=== PATIENT | female | born 1985 | race Two or more races ===

== ENCOUNTER 2016-04-28 06:09 | Day surgery (SDC) | payer OTHER ==
[2016-04-28 06:35] LABS: APPEARANCE,URINE SLIGHTLY-CLOUDY; BILIRUBIN,URINE NEGATIVE (NEGATIVE); GLUCOSE, URINE NEGATIVE (NEGATIVE); KETONES,URINE NEGATIVE (NEGATIVE); LEUKOCYTE ESTERASE,URINE NEGATIVE (NEGATIVE); NITRITE,URINE NEGATIVE (NEGATIVE); PROTEIN,URINE NEGATIVE (NEGATIVE); UROBILINOGEN,URINE NEGATIVE mg/dL (<2.0)
[2016-04-28 06:36] LABS: ABSOLUTE EOSINOPHILS # (AUTO) 0.1 10^3/uL (0.0-0.6); ABSOLUTE LYMPHOCYTES (AUTO) 2.1 10^3/uL (0.5-4.7); ABSOLUTE MONOCYTES (AUTO) 0.4 10^3/uL (0.1-1.4); BASOPHILS % (AUTO) 0.5 % (0-2); EOSINOPHILS % (AUTO) 1.2 % (0-6); HEMATOCRIT 37.9 % (36.0-47.0); HEMOGLOBIN 12.5 g/dL (12.0-15.5); HGB HCT DIFFERENCE -0.4; MEAN CORPUSCULAR HEMOGLOBIN 26.7 pg (27.0-33.4); MEAN CORPUSCULAR VOLUME 81 fl (80-97); MONOCYTES % (AUTO) 5.4 % (3-13); RED CELL DISTRIBUTION WIDTH 13.7 % (11.5-14.0); SEGMENTED NEUTROPHILS % (AUTO) 65.9 % (42-78); WHITE BLOOD COUNT 7.6 10^3/uL (4.0-10.5)
[2016-04-28] MEDS ORDERED: FAMOTIDINE INJ/PF 20 MG/2 ML SDV IV ONE (07:56)
[2016-04-28] MEDS ORDERED: METOCLOPRAMIDE HCL INJ/PF 10 MG/2 ML SDV ONE ×2 (07:56→11:25)
[2016-04-28] MEDS ORDERED: FENTANYL CITRATE INJ/PF 100 MCG/2 ML AMPUL ONE (08:07)
[2016-04-28] MEDS ORDERED: PROPOFOL INJ 200 MG/20 ML VIAL IV ONE (08:08)
[2016-04-28] MEDS ORDERED: MIDAZOLAM 2 MG/2 ML INJ ONE (08:08)
--- NOTE | 2016-04-28 08:51 | Operative Report ---
Operative Report DATE OF SURGERY: 04/28/16 PREOPERATIVE DIAGNOSIS: Missed AB POSTOPERATIVE DIAGNOSIS: Same OPERATION: Suction D&C SURGEON: RACHID LINDQUIST ANESTHESIA: GA TISSUE REMOVED OR ALTERED: Uterine contents COMPLICATIONS: None ESTIMATED BLOOD LOSS: 10 mL INTRAOPERATIVE FINDINGS: Uterine contents, uterus sounded to 7 cm before and after the procedure PROCEDURE: Patient was taken back to the OR and placed in supine position. Gen. anesthesia was induced. She was placed in the dorsal lithotomy position. Perineum and vagina were prepared and draped in sterile fashion. Bladder was emptied with red rubber catheter. A weighted speculum was placed in the vagina. The anterior lip cervix was grasped with a tenaculum. Uterus was sounded 7 cm. The cervix was dilated. The uterine contents were evacuated using a size 8 suction curet. After completion of the D&C there was a gentle exploration with a sharp curette and no retained products were noted. The uterus sounded 7 cm at the end of the case. All instruments were removed and she was placed back in supine position. She was extubated in the OR and taken to recovery in stable condition.
[2016-04-28] MEDS ORDERED: RINGERS SOLUTION,LACTATED 1,000 ML IV PRN (09:00)
[2016-04-28] MEDS ORDERED: KETOROLAC TROMETHAMINE INJ/PF 30 MG/1 ML SDV IV PRN (09:02)
[2016-04-28] MEDS ORDERED: IBUPROFEN 800 MG TABLET PO PRN (09:03)
[2016-04-28] MEDS ORDERED: OXYCODONE-ACETAMINOPHEN 5-325 MG TABLET PO PRN ×2 (09:05→09:06)
[2016-04-28 11:08] VITALS: BP 90/54
[2016-04-28] MEDS ORDERED: DEXAMETHASONE SOD PHOSPHATE INJ 4 MG/1 ML VIAL ONE (11:25)
[2016-04-28] MEDS ORDERED: ONDANSETRON HCL INJ/PF 4 MG/2 ML SDV ONE (11:25)
[2016-04-28] MEDS ORDERED: SUCCINYLCHOLINE CHLORIDE INJ 200 MG/10 ML VIAL ONE (11:25)
[2016-04-28] MEDS ORDERED: LIDOCAINE 2% INJ-PF (20 MG/ML) 10 ML AMPUL ONE (11:25)
[2016-04-28] MEDS ORDERED: GLYCOPYRROLATE INJ 0.4 MG/2 ML VIAL ONE (11:25)
== END 2016-04-28 11:05 | disposition home or self-care (01) ==
LOC: OROUT 06:09
PROVIDERS: ATTEND Obstetrics & Gynecology
PROC: 10D17ZZ Extraction of Products of Conception, Retained, Via Natural or Artificial Opening (ICD-10-PCS; principal; 2016-04-28 08:15)
DX: O02.1 Missed abortion (principal)
CPT/HCPCS: 36415; 85025; 81025; 81001; 88305 ×2; 59820; J2250; J1100; J3010; J2765; J0330; J2405; J2704; S0028; J3490; 1965

== ENCOUNTER 2017-03-13 10:16 | Emergency (ER) | payer MEDICAID, OTHER ==
--- NOTE | 2017-03-13 11:48 | ER Document Report ---
ED Medical Screen (RME) <FRANCISCA LLOYD - Last Filed: 03/13/17 19:17> - General Mode of Arrival: Ambulatory Information source: Patient TRAVEL OUTSIDE OF THE [place] IN LAST 30 DAYS: No - HPI Patient complains to provider of: Vaginal discharge Onset: This morning Associated Symptoms: Other - see notes above <EDI HOUSTON - Last Filed: 03/13/17 19:50> - General Chief Complaint: Vaginal Discharge Stated Complaint: VAGINAL DISCHARGE Time Seen by Provider: 03/13/17 11:18 Notes: 31 year old female () presents to the ED complaining of vaginal pain and passing brown vaginal discharge and tissue that started this morning. Patient is being followed by [facility] and had an ultrasound performed 2 weeks ago showing a normal intrauterine . Patient is having some mild discomfort currently. Patient denies passing any bright red blood or having any burning with urination. LMP: 12/17/2016 (EDI HOUSTON) - Related Data Allergies/Adverse Reactions: No Known Allergies Allergy (Verified 11/30/13 18:09) Past Medical History - General Information source: Patient - Social History Chew tobacco use (# tins/day): No Frequency of alcohol use: None Drug Abuse: None - Past Medical History Cardiac Medical History: Denies: Hx Coronary Artery Disease, Hx Heart Attack, Hx Hypertension Pulmonary Medical History: Denies: Hx Asthma, Hx Bronchitis, Hx COPD, Hx Pneumonia Neurological Medical History: Denies: Hx Cerebrovascular Accident, Hx Seizures Renal/ Medical History: Denies: Hx Peritoneal Dialysis Musculoskeltal Medical History: Denies Hx Arthritis Past Surgical History: Reports: Hx Appendectomy, Hx Section - Immunizations Hx Diphtheria, Pertussis, Tetanus Vaccination: Yes <EDI HOUSTON - Last Filed: 03/13/17 19:50> Review of Systems - Review of Systems Constitutional: No symptoms reported EENT: No symptoms reported Cardiovascular: No symptoms reported Respiratory: No symptoms reported Gastrointestinal: No symptoms reported Genitourinary: No symptoms reported Female Genitourinary: See HPI, Last menstrual period - 12/17/2016, , Vaginal discharge, Other - vaginal discomfort Musculoskeletal: No symptoms reported Skin: No symptoms reported Hematologic/Lymphatic: No symptoms reported Neurological/Psychological: No symptoms reported -: Yes All other systems reviewed and negative <EDI HOUSTON - Last Filed: 03/13/17 19:50> Physical Exam - General General appearance: Alert In distress: None - HEENT Head: Normocephalic, Atraumatic Eyes: Normal Extraocular movements intact: Yes Pupils: PERRL - Respiratory Respiratory status: No respiratory distress Breath sounds: Normal - Cardiovascular Rhythm: Regular Heart sounds: Normal auscultation - Abdominal Inspection: Normal Tenderness: Nontender <EDI HOUSTON - Last Filed: 03/13/17 19:50> - Vital signs Vitals: Temp Pulse Resp BP Pulse Ox 98.4 F 87 18 105/55 L 98 03/13/17 10:23 03/13/17 10:23 03/13/17 10:23 03/13/17 10:23 03/13/17 10:23 Course - Laboratory Result Diagrams: 03/13/17 12:10 <FRANCISCA LLOYD - Last Filed: 03/13/17 19:17> - Laboratory Result Diagrams: 03/13/17 12:10 <EDI HOUSTON - Last Filed: 03/13/17 19:50> - Re-evaluation Re-evalutation: 03/13/17 19:17 Patient found to have valid intrauterine with closed cervix on ultrasound. Patient denying any abdominal or pelvic pain on reexamination. Labs within normal limits are not significant with no signs of urinary tract infection. Discussed findings with patient and need for follow-up in the next 3 -4 days if symptoms continue. 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 (FRANCISCA LLOYD) - Vital Signs Vital signs: Temp Pulse Resp BP Pulse Ox 98.6 F 92 16 109/59 L 99 03/13/17 19:32 03/13/17 19:32 03/13/17 19:32 03/13/17 19:32 03/13/17 19:32 - Laboratory Laboratory results interpreted by me: 03/13/17 03/13/17 03/13/17 12:05 12:10 12:10 MCH RDW Serum HCG, Qual POSITIVE H Beta HCG, Quant 98810.00 H Urine Ascorbic Acid 20 H 03/13/17 12:10 MCH 26.7 L RDW 14.3 H Serum HCG, Qual Beta HCG, Quant Urine Ascorbic Acid Doctor's Discharge <FRANCISCA LLOYD - Last Filed: 03/13/17 19:17> <EDI HOUSTON - Last Filed: 03/13/17 19:50> - Discharge Clinical Impression: Intrauterine Condition: Good Disposition: HOME, SELF-CARE Additional Instructions: Please follow up with your primary care provider regarding your visit to the ED today. Please return to the ED for any new or worsening symptoms. Forms: Return to Work Referrals: VADIM CHI MD [Primary Care Provider] - Follow up as needed Scribe Documentation - Scribe Written by Scribe:: Loretta Angel, 03/13/2017 1206 acting as scribe for :: Jose Luis <EDI HOUSTON - Last Filed: 03/13/17 19:50>
[2017-03-13 12:46] LABS: ABSOLUTE LYMPHOCYTES (AUTO) 2.4 10^3/uL (0.5-4.7); ABSOLUTE MONOCYTES (AUTO) 0.4 10^3/uL (0.1-1.4); BASOPHILS % (AUTO) 0.4 % (0-2); EOSINOPHILS % (AUTO) 0.4 % (0-6); HEMATOCRIT 40.3 % (36.0-47.0); HEMOGLOBIN 13.2 g/dL (12.0-15.5); LYMPHOCYTES % (AUTO) 30.5 % (13-45); MEAN CORPUSCULAR HEMOGLOBIN 26.7 pg (27.0-33.4); MEAN CORPUSCULAR HGB CONC 32.7 g/dL (32.0-36.0); MEAN CORPUSCULAR VOLUME 82 fl (80-97); MONOCYTES % (AUTO) 5.1 % (3-13); PLATELET COUNT 283 10^3/uL (150-450); RED BLOOD COUNT 4.94 10^6/uL (3.72-5.28); RED CELL DISTRIBUTION WIDTH 14.3 % (11.5-14.0); SEGMENTED NEUTROPHILS % (AUTO) 63.6 % (42-78); TOTAL CELLS COUNTED % (AUTO) 100 %; WHITE BLOOD COUNT 7.8 10^3/uL (4.0-10.5)
--- NOTE | 2017-03-13 14:04 | RADIOLOGY REPORT (SQ) ---
EXAM DESCRIPTION: U/S QT8EFIV TRNABD 1GES W/ODOP COMPLETED DATE/TIME: 03/13/2017 1:50 pm REASON FOR STUDY: passing clots COMPARISON: None. TECHNIQUE: Transvaginal static and realtime grayscale images acquired of the pelvis. Additional machelle cted spectral and color Doppler images recorded. All images stored on PACs. bHCG: Not available. LIMITATIONS: None. FINDINGS: FETUS: Living intrauterine . EGA: 12 weeks 1 day THERON: 09/24/2017 FHR: 173 beats per minute. SUBCHORIONIC BLEED: No. SIZE OF BLEED: Not applicable. UTERUS: No masses. No anomalies. CERVICAL LENGTH: 2.4 cm Closed. RIGHT ADNEXA: Normal ovary with normal vascular flow. No adnexal free fluid. 2.3 cm cyst. LEFT ADNEXA: Not visualized No adnexal free fluid. No adnexal masses. FREE FLUID: None. OTHER: No other significant finding. IMPRESSION: LIVING INTRAUTERINE . EGA 12 weeks 1 day Trimester of : First - 0 to 13 weeks. TECHNICAL DOCUMENTATION: JOB ID: [id number] [employer]- All Rights Reserved
[2017-03-13 14:37] LABS: APPEARANCE,URINE CLEAR; BILIRUBIN,URINE NEGATIVE (NEGATIVE); COLOR,URINE YELLOW; GLUCOSE, URINE NEGATIVE (NEGATIVE); KETONES,URINE NEGATIVE (NEGATIVE); LEUKOCYTE ESTERASE,URINE NEGATIVE (NEGATIVE); NITRITE,URINE NEGATIVE (NEGATIVE); PROTEIN,URINE NEGATIVE (NEGATIVE); URINE SPECIFIC GRAVITY 1.013; UROBILINOGEN,URINE NEGATIVE mg/dL (<2.0)
[2017-03-13 19:35] VITALS: BP 109/59
== END 2017-03-13 19:35 | disposition home or self-care (01) ==
LOC: ER 10:16
DX: N89.8 Other specified noninflammatory disorders of vagina (principal); R10.2 Pelvic and perineal pain; R10.9 Unspecified abdominal pain; Z3A.12 12 weeks gestation of pregnancy
CPT/HCPCS: 36415; 76801; 81001; 84702; 84703; 85025; 86900; 86901; 99284

== ENCOUNTER 2017-05-10 21:46 | Outpatient (CLI) | payer MEDICAID ==
[2017-05-10] MEDS ORDERED: ONDANSETRON 4 MG TAB.RAPDIS PO ONE (22:06)
[2017-05-10] MEDS ORDERED: ONDANSETRON 4 MG TAB.RAPDIS ONE (22:07)
[2017-05-10 22:36] LABS: APPEARANCE,URINE SLIGHTLY-CLOUDY; BILIRUBIN,URINE NEGATIVE (NEGATIVE); COLOR,URINE YELLOW; GLUCOSE, URINE NEGATIVE (NEGATIVE); KETONES,URINE 20 mg/dL (NEGATIVE); LEUKOCYTE ESTERASE,URINE NEGATIVE (NEGATIVE); NITRITE,URINE NEGATIVE (NEGATIVE); PROTEIN,URINE NEGATIVE (NEGATIVE); URINE SPECIFIC GRAVITY 1.024; UROBILINOGEN,URINE NEGATIVE mg/dL (<2.0)
[2017-05-10 22:47] LABS: URINE AMPHETAMINES SCREEN NEGATIVE; URINE BARBITURATES SCREEN NEGATIVE; URINE BENZODIAZEPINES SCREEN NEGATIVE; URINE COCAINE SCREEN NEGATIVE; URINE MARIJUANA (THC) SCREEN NEGATIVE; URINE METHADONE SCREEN NEGATIVE; URINE PHENCYCLIDINE SCREEN NEGATIVE
== END 2017-05-10 23:00 | disposition home or self-care (01) ==
LOC: LC 21:46
PROVIDERS: ATTEND Student in an Organized Health Care Education/Training Program
PROC: 4A1HXCZ Monitoring of Products of Conception, Cardiac Rate, External Approach (ICD-10-PCS; principal; 2017-05-10)
DX: O26.892 Other specified pregnancy related conditions, second trimester (principal); R14.1 Gas pain; Z3A.20 20 weeks gestation of pregnancy
CPT/HCPCS: 81001; 80307; 59899; S0119

== ENCOUNTER 2017-05-11 15:22 | Emergency (ER) | payer MEDICAID ==
[2017-05-11] MEDS ORDERED: NORMAL SALINE 1000 ML 1,000 ML IV ONE (15:58)
[2017-05-11] MEDS ORDERED: METOCLOPRAMIDE HCL INJ/PF 10 MG/2 ML SDV IV ONE (15:58)
--- NOTE | 2017-05-11 16:03 | ER Document Report ---
ED General - General Chief Complaint: Upper Abdominal Pain Stated Complaint: ABDOMINAL PAIN Time Seen by Provider: 05/11/17 15:42 Mode of Arrival: Ambulatory Information source: Patient Notes: 31-year-old female presents 20 weeks with complaints of nausea vomiting since yesterday with generalized abdominal pain. Patient denies any fevers or chills, patient denies any urinary complaints or vaginal bleeding. Patient was seen by [employer] last night cleared from their standpoint but noted to have some ketones in the urine was given Zofran and was discharged home TRAVEL OUTSIDE OF THE [place] IN LAST 30 DAYS: No - HPI Onset: Yesterday Onset/Duration: Persistent Quality of pain: Cramping Severity: Mild Pain Level: 1 Associated symptoms: Nausea, Vomiting Exacerbated by: Denies Relieved by: Denies Similar symptoms previously: Yes Recently seen / treated by doctor: Yes - Related Data Allergies/Adverse Reactions: No Known Allergies Allergy (Verified 05/10/17 21:59) Past Medical History - Social History Smoking Status: Unknown if Ever Smoked Cigarette use (# per day): No Chew tobacco use (# tins/day): No Smoking Education Provided: No Frequency of alcohol use: None Drug Abuse: None Family History: Reviewed & Not Pertinent Patient has suicidal ideation: No Patient has homicidal ideation: No - Past Medical History Cardiac Medical History: Denies: Hx Coronary Artery Disease, Hx Heart Attack, Hx Hypertension Pulmonary Medical History: Denies: Hx Asthma, Hx Bronchitis, Hx COPD, Hx Pneumonia Neurological Medical History: Denies: Hx Cerebrovascular Accident, Hx Seizures Renal/ Medical History: Denies: Hx Peritoneal Dialysis Musculoskeltal Medical History: Denies Hx Arthritis Past Surgical History: Reports: Hx Appendectomy, Hx Section - Immunizations Hx Diphtheria, Pertussis, Tetanus Vaccination: Yes Review of Systems - Review of Systems Notes: REVIEW OF SYSTEMS: CONSTITUTIONAL : Denies fever, chills, or sweats. Denies recent illness. EENT: Denies eye, ear, throat, or mouth pain or symptoms. Denies nasal or sinus congestion or discharge. Denies throat, tongue, or mouth swelling or difficulty swallowing. CARDIOVASCULAR: Denies chest pain. Denies palpitations or racing or irregular heart beat. Denies ankle edema. RESPIRATORY: Denies cough, cold, or chest congestion. Denies shortness of breath, difficulty breathing, or wheezing. GASTROINTESTINAL: Admits to nausea vomiting generalized abdominal pain GENITOURINARY: Denies difficulty urinating, painful urination, burning, frequency, blood in urine, or discharge. FEMALE GENITOURINARY: Denies vaginal bleeding, heavy or abnormal periods, irregular periods. Denies vaginal discharge or odor. MUSCULOSKELETAL: Denies back or neck pain or stiffness. Denies joint pain or swelling. SKIN: Denies rash, lesions or sores. HEMATOLOGIC : Denies easy bruising or bleeding. LYMPHATIC: Denies swollen, enlarged glands. NEUROLOGICAL: Denies confusion or altered mental status. Denies passing out or loss of consciousness. Denies dizziness or lightheadedness. Denies headache. Denies weakness or paralysis or loss of use of either side. Denies problems with gait or speech. Denies sensory loss, numbness, or tingling. Denies seizures. PSYCHIATRIC: Denies anxiety or stress. Denies depression, suicidal ideation, or homicidal ideation. ALL OTHER SYSTEMS REVIEWED AND NEGATIVE. PHYSICAL EXAMINATION: GENERAL: Well-appearing, well-nourished and in no acute distress. HEAD: Atraumatic, normocephalic. EYES: Pupils equal round and reactive to light, extraocular movements intact, conjunctiva are normal. ENT: Nares patent, oropharynx clear without exudates. Moist mucous membranes. NECK: Normal range of motion, supple without lymphadenopathy LUNGS: Breath sounds clear to auscultation bilaterally and equal. No wheezes rales or rhonchi. HEART: Regular rate and rhythm without murmurs ABDOMEN: Gravid abdomen non-tender upon palpation no guarding Female : deferred Musculoskeletal: Normal range of motion, no pitting or edema. No cyanosis. NEUROLOGICAL: Cranial nerves grossly intact. Normal speech, normal gait. Normal sensory, motor exams PSYCH: Normal mood, normal affect. SKIN: Warm, Dry, normal turgor, no rashes or lesions noted. Dictation was performed using [employer] voice recognition software Physical Exam - Vital signs Vitals: Temp Pulse Resp BP Pulse Ox 98.0 F 74 16 119/64 98 05/11/17 15:31 05/11/17 15:31 05/11/17 15:31 05/11/17 15:31 05/11/17 15:31 Course - Re-evaluation Re-evalutation: 05/11/17 16:[address] lab work pending patient will be given IV fluids 05/11/17 20:03 Patient after fluids were given notes significant improvement of symptoms, wishes to be discharged home we will discharge her at her request After performing a Medical Screening Examination, I estimate there is LOW risk for ACUTE APPENDICITIS, BOWEL OBSTRUCTION, ACUTE CHOLECYSTITIS, PERFORATED DIVERTICULITIS, INCARCERATED HERNIA, PANCREATITIS, PELVIC INFLAMMATORY DISEASE, PERFORATED ULCER, ECTOPIC , or TUBO-OVARIAN ABSCESS, thus I consider the discharge disposition reasonable. Also, there is no evidence or peritonitis , sepsis, or toxicity. I have reevaluated this patient multiple times and no significant life threatening changes are noted. The patient and I have discussed the diagnosis and risks, and we agree with discharging home with close follow-up with the understanding that symptoms and presentations can change. We also discussed returning to the Emergency Department immediately if new or worsening symptoms occur. We have discussed the symptoms which are most concerning (e.g., bloody stool, fever, changing or worsening pain, vomiting) that necessitate immediate return. - Vital Signs Vital signs: Temp Pulse Resp BP Pulse Ox 98.1 F 68 19 128/76 H 100 05/11/17 17:55 05/11/17 17:55 05/11/17 17:55 05/11/17 17:55 05/11/17 17:55 - Laboratory Result Diagrams: 05/11/17 16:06 05/11/17 16:52 Laboratory results interpreted by me: 05/11/17 05/11/17 16:06 16:52 WBC 11.7 H MCH 26.5 L RDW 14.2 H Seg Neutrophils % 85.1 H Lymphocytes % 10.8 L Absolute Neutrophils 10.0 H Sodium 136.8 L Discharge - Discharge Clinical Impression: Abdominal pain affecting Nausea & vomiting Qualifiers: Vomiting type: unspecified Vomiting Intractability: non-intractable Qualified Code(s): R11.2 - Nausea with vomiting, unspecified Condition: Stable Disposition: HOME, SELF-CARE Instructions: Abdominal Pain ([facility]) Additional Instructions: You may take 1000 mg of Tylenol every 6 hours Prescriptions: Promethazine HCl [Phenergan 25 mg Tablet] 1 - 2 tab PO Q6H PRN #15 tablet PRN Reason: Referrals: [facility] [Provider Group] - Follow up tomorrow
[2017-05-11 16:29] LABS: ABSOLUTE LYMPHOCYTES (AUTO) 1.3 10^3/uL (0.5-4.7); ABSOLUTE MONOCYTES (AUTO) 0.4 10^3/uL (0.1-1.4); BASOPHILS % (AUTO) 0.3 % (0-2); EOSINOPHILS % (AUTO) 0.2 % (0-6); HEMATOCRIT 40.2 % (36.0-47.0); HEMOGLOBIN 13.2 g/dL (12.0-15.5); LYMPHOCYTES % (AUTO) 10.8 % (13-45); MEAN CORPUSCULAR HEMOGLOBIN 26.5 pg (27.0-33.4); MEAN CORPUSCULAR HGB CONC 32.9 g/dL (32.0-36.0); MEAN CORPUSCULAR VOLUME 80 fl (80-97); MONOCYTES % (AUTO) 3.6 % (3-13); PLATELET COUNT 297 10^3/uL (150-450); RED CELL DISTRIBUTION WIDTH 14.2 % (11.5-14.0); SEGMENTED NEUTROPHILS % (AUTO) 85.1 % (42-78); TOTAL CELLS COUNTED % (AUTO) 100 %; WHITE BLOOD COUNT 11.7 10^3/uL (4.0-10.5)
[2017-05-11] MEDS ORDERED: PROMETHAZINE HCL INJ 25 MG/1 ML VIAL IM ONE (16:44)
[2017-05-11 17:28] LABS: ALANINE AMINOTRANSFERASE 25 U/L (9-52); ALKALINE PHOSPHATASE 104 U/L (38-126); ANION GAP 10 (5-19); ASPARTATE AMINO TRANSFERASE 16 U/L (14-36); BILIRUBIN,DIRECT 0.4 mg/dL (0.0-0.4); BILIRUBIN,TOTAL 0.7 mg/dL (0.2-1.3); BLOOD UREA NITROGEN 11 mg/dL (7-20); CALCIUM 9.1 mg/dL (8.4-10.2); CARBON DIOXIDE 24 mmol/L (22-30); CHLORIDE 103 mmol/L (98-107); GLUCOSE 86 mg/dL (75-110); LIPASE 40.2 U/L (23-300); POTASSIUM 3.8 mmol/L (3.6-5.0); SODIUM 136.8 mmol/L (137-145); TOTAL PROTEIN 7.2 g/dL (6.3-8.2)
[2017-05-11 17:56] VITALS: BP 128/76
== END 2017-05-11 17:56 | disposition home or self-care (01) ==
LOC: ER 15:22
DX: O26.892 Other specified pregnancy related conditions, second trimester (principal); R10.84 Generalized abdominal pain; O21.2 Late vomiting of pregnancy; Z3A.20 20 weeks gestation of pregnancy; Z90.49 Acquired absence of other specified parts of digestive tract
CPT/HCPCS: 99284; 96372; 96361; 96374; 36415; 83690; 85025; 80053; J2765; J2550; J7030

== ENCOUNTER 2017-09-18 02:35 | Outpatient (CLI) | payer MEDICAID ==
[2017-09-18] MEDS ORDERED: RINGERS SOLUTION,LACTATED 1,000 ML IV ONE (02:58)
[2017-09-18] MEDS ORDERED: RINGERS SOLUTION,LACTATED 1,000 ML IV PRN (02:58)
[2017-09-18 03:21] LABS: APPEARANCE,URINE CLEAR; BILIRUBIN,URINE NEGATIVE (NEGATIVE); COLOR,URINE STRAW; GLUCOSE, URINE NEGATIVE (NEGATIVE); KETONES,URINE NEGATIVE (NEGATIVE); LEUKOCYTE ESTERASE,URINE NEGATIVE (NEGATIVE); NITRITE,URINE NEGATIVE (NEGATIVE); PROTEIN,URINE NEGATIVE (NEGATIVE); URINE SPECIFIC GRAVITY 1.003; UROBILINOGEN,URINE NEGATIVE mg/dL (<2.0)
[2017-09-18 03:57] LABS: URINE AMPHETAMINES SCREEN NEGATIVE; URINE BARBITURATES SCREEN NEGATIVE; URINE BENZODIAZEPINES SCREEN NEGATIVE; URINE COCAINE SCREEN NEGATIVE; URINE MARIJUANA (THC) SCREEN NEGATIVE; URINE METHADONE SCREEN NEGATIVE; URINE PHENCYCLIDINE SCREEN NEGATIVE
--- NOTE | 2017-09-18 05:26 | Non Stress Test Report ---
Non Stress Test Datetime Report Generated by CPN: 09/18/2017 05:25 DEMOGRAPHIC Test Number: 1 EGA NST: 39.2 INDICATION Indication for Study: Ordered by Provider MONITORING Monitor Explained: Monitor Explained; Test Explained; Patient Verbalized Understanding Time on Monitor: 09/18/2017 04:08 Time off Monitor: 09/18/2017 05:12 NST Duration: 64 NST INTERVENTIONS NST Interventions: IV Fluids; Reposition Patient Physician Notified NST: DrRicardo Ramirez BABY A: [id number] BABY A Movement : Present Contraction Frequency : irregular FHR Baseline : 120 Accelerations : 15X15 Decelerations : None Variability : Moderate 6-25bpm NST Review: Meets Criteria for Reactive NST NST Review and Verified By : BILL Grimaldo NST Results: Reactive NST REPORT Report Trigger: Send Report
--- NOTE | 2017-09-19 12:08 | Warning Signs in Babies ---
VOD Warning Signs Datetime Report Generated by [facility]: 09/19/2017 12:07 VOD#[id number] -Warning Signs in Babies: Needs to be viewed. (09/19/2017 11:00:Magalis Garrison RN)
== END 2017-09-18 05:25 | disposition home or self-care (01) ==
LOC: LC 02:35
PROVIDERS: ATTEND Student in an Organized Health Care Education/Training Program
PROC: 4A1HXCZ Monitoring of Products of Conception, Cardiac Rate, External Approach (ICD-10-PCS; principal; 2017-09-18)
DX: O47.1 False labor at or after 37 completed weeks of gestation (principal); Z3A.39 39 weeks gestation of pregnancy
CPT/HCPCS: 59025; 80307; 81001

== ENCOUNTER 2017-09-19 06:40 | Inpatient (IN) | payer MEDICAID ==
[2017-09-18 12:33] LABS: AMORPHOUS SEDIMENT,URINE TRACE /HPF; APPEARANCE,URINE CLOUDY; BILIRUBIN,URINE NEGATIVE (NEGATIVE); COLOR,URINE YELLOW; GLUCOSE, URINE NEGATIVE (NEGATIVE); KETONES,URINE NEGATIVE (NEGATIVE); LEUKOCYTE ESTERASE,URINE SMALL (NEGATIVE); NITRITE,URINE NEGATIVE (NEGATIVE); PROTEIN,URINE NEGATIVE (NEGATIVE); URINE SPECIFIC GRAVITY 1.009; UROBILINOGEN,URINE NEGATIVE mg/dL (<2.0)
[2017-09-18 12:35] LABS: ABSOLUTE LYMPHOCYTES (AUTO) 1.4 10^3/uL (0.5-4.7); ABSOLUTE MONOCYTES (AUTO) 0.4 10^3/uL (0.1-1.4); ABSOLUTE NEUT (AUTO) 5.5 10^3/uL (1.7-8.2); BASOPHILS % (AUTO) 0.3 % (0-2); EOSINOPHILS % (AUTO) 0.5 % (0-6); HEMATOCRIT 35.6 % (36.0-47.0); HEMOGLOBIN 11.7 g/dL (12.0-15.5); MEAN CORPUSCULAR HEMOGLOBIN 24.6 pg (27.0-33.4); MEAN CORPUSCULAR HGB CONC 32.8 g/dL (32.0-36.0); MEAN CORPUSCULAR VOLUME 75 fl (80-97); MONOCYTES % (AUTO) 5.5 % (3-13); PLATELET COUNT 240 10^3/uL (150-450); RED BLOOD COUNT 4.75 10^6/uL (3.72-5.28); RED CELL DISTRIBUTION WIDTH 17.5 % (11.5-14.0); SEGMENTED NEUTROPHILS % (AUTO) 74.7 % (42-78); TOTAL CELLS COUNTED % (AUTO) 100 %; WHITE BLOOD COUNT 7.4 10^3/uL (4.0-10.5)
[2017-09-18 12:53] LABS: URINE AMPHETAMINES SCREEN NEGATIVE; URINE BARBITURATES SCREEN NEGATIVE; URINE BENZODIAZEPINES SCREEN NEGATIVE; URINE COCAINE SCREEN NEGATIVE; URINE MARIJUANA (THC) SCREEN NEGATIVE; URINE METHADONE SCREEN NEGATIVE; URINE PHENCYCLIDINE SCREEN NEGATIVE
[~2017-09-19 06:40] MED LIST: CEFAZOLIN 2 GM/D5W RTU 2 GM/50 ML RTUPB IV PRN; LACTATED RINGERS 1000 ML IV PRN; LIDOCAINE 0.5% INJ-PF (5 MG/ML) 50 ML SDV SUBCUT PRN; RINGERS SOLUTION,LACTATED 2,000 ML IV PRN
--- NOTE | 2017-09-19 09:06 | PDOC PROGRESS REPORT ---
Subjective-OB Progress Note for:: 09/19/17 Subjective: for C/S today, on NST Physical Exam (OB) Vital Signs: Temp Pulse Resp BP Pulse Ox 97.2 F 82 16 99/64 L 98 09/19/17 07:06 09/19/17 07:06 09/19/17 07:06 09/19/17 07:06 09/19/17 07:06 Intake & Output 09/18/17 09/19/17 09/20/17 06:59 06:59 06:59 Weight 77.11 kg 77.111 kg Objective-Diagnostic Laboratory: 09/18/17 11:50 09/18/17 09/18/17 09/18/17 11:40 11:50 11:50 WBC 7.4 RBC 4.75 Hgb 11.7 L Hct 35.6 L MCV 75 L MCH 24.6 L MCHC 32.8 RDW 17.5 H Plt Count 240 Seg Neutrophils % 74.7 Lymphocytes % 19.0 Monocytes % 5.5 Eosinophils % 0.5 Basophils % 0.3 Absolute Neutrophils 5.5 Absolute Lymphocytes 1.4 Absolute Monocytes 0.4 Absolute Eosinophils 0.0 Absolute Basophils 0.0 Urine Color YELLOW Urine Appearance CLOUDY Urine pH 8.0 Ur Specific [place] 1.009 Urine Protein NEGATIVE Urine Glucose (UA) NEGATIVE Urine Ketones NEGATIVE Urine Blood NEGATIVE Urine Nitrite NEGATIVE Ur Leukocyte Esterase SMALL H Urine WBC (Auto) 2 Urine RBC (Auto) 1 Blood Type A POSITIVE Antibody Screen NEGATIVE Assessment and Plan(PN) - Assessment and Plan (1) delivery delivered Is this a current diagnosis for this admission?: Yes - Time Spent with Patient Time with patient: Less than 15 minutes Medications reviewed and adjusted accordingly: Yes - Disposition Anticipated Discharge: Home Within: within 48 hours
[2017-09-19] MEDS ORDERED: OXYTOCIN 10 UNIT/ML VIAL ONE (09:23)
[2017-09-19] MEDS ORDERED: EPHEDRINE SULFATE INJ 50 MG/1 ML AMPULE ONE (09:23)
[2017-09-19] MEDS ORDERED: FENTANYL CITRATE INJ/PF 100 MCG/2 ML AMPUL ONE (09:23)
[2017-09-19] MEDS ORDERED: PROPOFOL INJ 200 MG/20 ML VIAL IV ONE (09:23)
[2017-09-19] MEDS ORDERED: MIDAZOLAM 2 MG/2 ML INJ ONE (09:23)
[2017-09-19] MEDS ORDERED: BUPIVACAINE HCL/DEX-WATER/PF 15 MG/2 ML AMPULE ONE (09:24)
[2017-09-19] MEDS ORDERED: PROMETHAZINE HCL INJ 25 MG/1 ML VIAL IV PRN ×2 (09:53→10:29)
[2017-09-19] MEDS ORDERED: RINGERS SOLUTION,LACTATED 1,000 ML IV PRN (09:53)
[2017-09-19] MEDS ORDERED: OXYCODONE-ACETAMINOPHEN 5-325 MG TABLET PO PRN (09:53)
[2017-09-19] MEDS ORDERED: MEASLES,MUMPS&RUBELLA VACC/PF 0.5 ML VIAL SUBCUT PRN (09:53)
[2017-09-19] MEDS ORDERED: ACETAMINOPHEN 1,000 MG/100 ML RTUPB IV PRN (09:53)
[2017-09-19] MEDS ORDERED: ACETAMINOPHEN 325 MG TABLET PO PRN (09:53)
[2017-09-19] MEDS ORDERED: SIMETHICONE 80 MG TAB.CHEW PO PRN (09:53)
[2017-09-19] MEDS ORDERED: OXYTOCIN/NORMAL SALINE 20 UNIT/1,000 ML RTUINJ IV PRN (09:53)
[2017-09-19] MEDS ORDERED: DIPH/PERTUSS(ACELL)/TETANUS VAC/PF 0.5 ML SYR (>=10YO) IM PRN (09:53)
[2017-09-19] MEDS ORDERED: HYDROMORPHONE HCL INJ/PF 2 MG/ML AMPULE IV PRN (09:53)
[2017-09-19] MEDS ORDERED: MEPERIDINE HCL/PF INJ 25 MG/1 ML DISP.SYRIN IV PRN (10:29)
[2017-09-19] MEDS ORDERED: DIPHENHYDRAMINE HCL 50 MG/ML VIAL IV PRN (10:29)
[2017-09-19] MEDS ORDERED: FENTANYL CITRATE INJ/PF 100 MCG/2 ML AMPUL IV PRN ×3 (10:29)
--- NOTE | 2017-09-19 10:58 | PDOC DELIVERY SUMMARY ---
Delivery Summary - Maternal Hx : IV Hx # Term Pregnancies: 1 Hx Total # of Abortions (Sponateous & Elective): 2 THERON: 09/23/17 Ruptured Membranes: AROM Time of Rupture: 10:19 Fluids: Clear - Delivery Presentation: Vertex Heart Rate Monitoring: Done Pre-Operatively Support Person Present: Yes Location: LD : Scheduled Placenta: Within Normal Limits Delivery of Placenta Date: 09/19/17 Delivery of Placenta Time: 10:21 - Medications Type of Anesthesia:: Spinal - Assess and Care Baby 1 Delivery of Infant Date: 09/19/17 Delivery of Time: 10:20 at 1 minute: 9 at 5 minutes: 9 Preprinted Number On Band: [id number] Infant Skin to Skin: Yes Skin to Skin (Mins): 2 To Nursery At: 10:29 Mode of Transport: Bassinet - Delivery Personnel Partner Integration Planner: STEVEN LESLIE RN: RHETT SNIDER RN: BRANDEE LEAL MD: RACHID LINDQUIST
--- NOTE | 2017-09-19 11:03 | Operative Report ---
Operative Report DATE OF SURGERY: 09/19/17 PREOPERATIVE DIAGNOSIS: Patient requests repeat to prevent risk of uterine rupture POSTOPERATIVE DIAGNOSIS: Same OPERATION: Repeat via low transverse uterine incision SURGEON: RACHID LINDQUIST ANESTHESIA: Spinal TISSUE REMOVED OR ALTERED: Placenta COMPLICATIONS: None ESTIMATED BLOOD LOSS: 250 cc INTRAOPERATIVE FINDINGS: Viable male normal uterus tubes and ovaries PROCEDURE: Patient was taken to the OR and placed in supine position after her spinal anesthesia. She is prepared and draped in sterile fashion. Dixon was placed for drainage of the bladder. Low transverse incision was made and carried down the level of the fascia. The fascial incision was made with knife and extended bilaterally with curved Rodriguez scissors. The fascia was off the rectus muscles using sharp and blunt dissection. The rectus muscles are in the midline. The peritoneum was entered without incident. Bladder blade was placed in uterine segment was identified. A low transverse incision was made creating a bladder flap. Bladder blade was placed low transverse uterine incision was made with the csafe knife and extended with fingertips. The baby was delivered with some fundal pressure. Mouth and nose were suctioned free. The cord is doubly clamped and cut. Baby is passed off to the confectionery laboratory manager in attendance. The placenta was manually extracted with trailing membranes. The uterus was externalized wrapped in a moist lap sponge. Uterine contents wiped free. Uterus was closed with a running locking layer of 0 chromic suture using the second layer to imbricate the first completing a double layer closure of the uterus. The serosa was closed with a running 2-0 chromic stitch. The pelvis was irrigated and suctioned free of fluid the uterus was replaced in the abdomen. The abdominal wall peritoneum was closed with running 2-0 chromic stitch. Fascia was closed with a running 0 Vicryl in 2 segments. Destiny's layer was brought together with 0 plain gut stitch and the skin was closed with running subcuticular 4-0 undyed Vicryl stitch. The wound was dressed mother and baby did well.
[2017-09-19] MEDS ORDERED: ACETAMINOPHEN 1,000 MG/100 ML RTUPB IV ONE (11:07)
[2017-09-19] MEDS ORDERED: KETOROLAC TROMETHAMINE INJ/PF 30 MG/1 ML SDV ONE (11:07)
[2017-09-19] MEDS: KETOROLAC TROMETHAMINE INJ/PF 30 MG/1 ML SDV IV SCH ×2 (11:10→17:49)
[2017-09-19] MEDS ORDERED: OXYTOCIN/NORMAL SALINE 20 UNIT/1,000 ML RTUINJ ONE (11:58)
[2017-09-19] MEDS: DOCUSATE SODIUM 100 MG CAPSULE PO SCH ×2 (13:13→17:50)
[2017-09-19] MEDS: PRENATAL VITAMIN W DHA CAPSULE PO SCH (13:14)
[2017-09-19] MEDS: OXYCODONE-ACETAMINOPHEN 5-325 MG TABLET PO PRN ×2 (17:50→23:31)
[2017-09-20] MEDS: KETOROLAC TROMETHAMINE INJ/PF 30 MG/1 ML SDV IV SCH (02:36)
[2017-09-20] MEDS: OXYCODONE-ACETAMINOPHEN 5-325 MG TABLET PO PRN ×3 (04:11→21:29)
[2017-09-20 08:19] LABS: HEMATOCRIT 27.7 % (36.0-47.0); MEAN CORPUSCULAR HEMOGLOBIN 24.9 pg (27.0-33.4); MEAN CORPUSCULAR HGB CONC 32.9 g/dL (32.0-36.0); MEAN CORPUSCULAR VOLUME 76 fl (80-97); PLATELET COUNT 189 10^3/uL (150-450); RED BLOOD COUNT 3.66 10^6/uL (3.72-5.28); RED CELL DISTRIBUTION WIDTH 17.6 % (11.5-14.0); WHITE BLOOD COUNT 8.4 10^3/uL (4.0-10.5)
[2017-09-20 08:23] LABS: HEMOGLOBIN 9.1 g/dL (12.0-15.5)
[2017-09-20] MEDS: IBUPROFEN 800 MG TABLET PO SCH ×4 (08:53→23:38)
[2017-09-20] MEDS: PRENATAL VITAMIN W DHA CAPSULE PO SCH (09:50)
[2017-09-20] MEDS: DOCUSATE SODIUM 100 MG CAPSULE PO SCH ×2 (09:50→18:29)
--- NOTE | 2017-09-20 10:47 | PDOC PROGRESS REPORT ---
Subjective-OB Progress Note for:: 09/20/17 Subjective: Pt doing well no concerns. Reports light bleeding, reg diet, +flatus and no difficulty voiding Physical Exam (OB) Vital Signs: Temp Pulse Resp BP Pulse Ox 97.8 F 74 20 95/53 L 99 09/20/17 07:41 09/20/17 07:41 09/20/17 07:41 09/20/17 07:41 09/20/17 07:41 Intake & Output 09/19/17 09/20/17 09/21/17 06:59 06:59 06:59 Intake Total 2500 Output Total 3250 Balance -750 Weight 77.11 kg 77.111 kg - Dressing Removed: No Incision: Dressing - Lochia Lochia Amount: Scant < 10 ml Lochia Color: Rubra/Red - Abdomen Description: Soft, Round Hernia Present: No Fundal Description: Firm, Midline Fundal Height: u/u - u/2 Objective-Diagnostic Laboratory: 09/20/17 07:50 09/20/17 07:50 WBC 8.4 RBC 3.66 L Hgb 9.1 L D Hct 27.7 L MCV 76 L MCH 24.9 L MCHC 32.9 RDW 17.6 H Plt Count 189 Assessment and Plan(PN) - Assessment and Plan (1) delivery delivered Is this a current diagnosis for this admission?: Yes - Time Spent with Patient Time with patient: Less than 15 minutes Medications reviewed and adjusted accordingly: Yes - Disposition Anticipated Discharge: Home Within: within 24 hours, within 48 hours
[2017-09-21] MEDS: IBUPROFEN 800 MG TABLET PO SCH ×3 (06:22→18:05)
[2017-09-21] MEDS: DOCUSATE SODIUM 100 MG CAPSULE PO SCH ×2 (09:28→18:05)
[2017-09-21] MEDS: PRENATAL VITAMIN W DHA CAPSULE PO SCH (09:28)
[2017-09-21] MEDS ORDERED: OXYCODONE-ACETAMINOPHEN 5-325 MG TABLET ONE (09:32)
[2017-09-21] MEDS: OXYCODONE-ACETAMINOPHEN 5-325 MG TABLET PO PRN (15:12)
--- NOTE | 2017-09-21 16:20 | PDOC DISCHARGE SUMMARY ---
Final Diagnosis Discharge Date: 09/21/17 - Final Diagnosis (1) delivery delivered Is this a current diagnosis for this admission?: Yes Discharge Data - Discharge Medication Home Medications: Vit No.129/Iron/Folic [ One Daily Tablet] 1 each PO DAILY 05/10 Ferrous Sulfate 1 tab PO BID 09/18/17 Ibuprofen [Motrin 800 mg Tablet] 800 mg PO Q6 tablet 09/21/17 Oxycodone HCl/Acetaminophen [Percocet 5-325 mg Tablet] 1 tab PO Q4HP PRN tablet 09/21/17 Vit/Dha [ Multi + Dha Capsule] 1 cap PO DAILY capsule Procedures: NST Intrapartum Procedure(s): : Low Cervical, Transverse - Diagnosis Test Laboratory: Temp Pulse Resp BP Pulse Ox 98.3 F 79 17 89/54 L 99 09/21/17 16:07 09/21/17 16:07 09/21/17 16:07 09/21/17 16:07 09/21/17 16:07 09/18/17 09/18/17 09/20/17 11:40 11:50 07:50 RBC 4.75 3.66 L Hgb 11.7 L 9.1 L D Hct 35.6 L 27.7 L Urine Opiates Screen NEGATIVE - Discharge information/Instructions Discharge Activity: Bedrest, No Driving, No Lifting Over 10 Pounds, Pelvic Rest , No tub bath Discharge Diet: Regular Disposition: HOME, SELF-CARE Follow up with: [facility] in: 1, Weeks
[2017-09-21 17:29] VITALS: BP 98/57
== END 2017-09-21 21:00 | disposition home or self-care (01) | DRG 766 ==
LOC: 2N 06:40
PROVIDERS: ADMIT Obstetrics & Gynecology; ATTEND Obstetrics & Gynecology
PROC: 10D00Z1 Extraction of Products of Conception, Low, Open Approach (ICD-10-PCS; principal; 2017-09-19 09:45)
DX: O34.211 Maternal care for low transverse scar from previous cesarean delivery (principal); N85.8 Other specified noninflammatory disorders of uterus; Z3A.39 39 weeks gestation of pregnancy; Z37.0 Single live birth
CPT/HCPCS: 1961; 36415; 59025; 80307; 81001; 85025; 85027; 86850; 86900; 86901; 94799; J0131; J0690; J1170; J1885; J2250; J2590; J2704; J3010; J3490; J7120